=== PATIENT | female | born 1970 | race Caucasian/White ===

== ENCOUNTER 2019-07-13 22:51 | Emergency (ER) | payer MEDICAID ==
[~2019-07-13] VITALS: Ht 162.6 cm; Wt 58.1 kg
[2019-07-13 23:00] VITALS: BP 148/87
--- NOTE | 2019-07-13 23:09 | NUR ---
PT CAME FOR L EYE PAIN AND ITCHING. VSS. NO ACUTE DISTRESS NOTED. AWAITING FOR MD DENNIS
--- NOTE | 2019-07-13 23:15 | NUR ---
Patient discharged to home in stable condition. Written and verbal after care instructions given. Patient verbalizes understanding of instruction.
== END 2019-07-13 23:16 | disposition home or self-care (01) ==
LOC: ER 22:54
DX: H10.89 Other conjunctivitis (principal); Z98.890 Other specified postprocedural states

== ENCOUNTER 2021-02-26 21:03 | Emergency (ER) | payer OTHER ==
[~2021-02-26] VITALS: Ht 167.6 cm; Wt 68.0 kg
[2021-02-26] MEDS ORDERED: HYDROMORPHONE 1 MG/1 ML DISP.SYRIN ONE (21:04)
[2021-02-26] MEDS ORDERED: ONDANSETRON HCL/PF 4 MG/2 ML VIAL ONE (21:12)
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
[2021-02-26] MEDS ORDERED: ONDANSETRON HCL/PF 4 MG/2 ML VIAL IVP ONE (21:30)
[2021-02-26] MEDS ORDERED: HYDROMORPHONE INJ 2 MG/ML DISP.SYRIN IV ONE (21:30)
[2021-02-26] MEDS ORDERED: IV NS 0.9% 1,000 ML BAG IV ONE (21:30)
[2021-02-26] MEDS ORDERED: HYDR-3972 PO (21:39)
[2021-02-26 22:06] VITALS: BP 127/87
--- NOTE | 2021-02-26 22:06 | NUR ---
Patient discharged to home in stable condition. Written and verbal after care instructions given. Patient verbalizes understanding of instruction. IV removed. Catheter intact and site benign. Pressure and 4x4 applied to site. No bleeding noted.
== END 2021-02-26 22:07 | disposition home or self-care (01) ==
LOC: ER 21:03
DX: T24.202A Burn of second degree of unspecified site of left lower limb, except ankle and foot, initial encounter (principal); T23.112A Burn of first degree of left thumb (nail), initial encounter; Z98.890 Other specified postprocedural states; X12.XXXA Contact with other hot fluids, initial encounter; Y93.89 Activity, other specified; Y92.89 Other specified places as the place of occurrence of the external cause; Y99.8 Other external cause status
CPT/HCPCS: 16020; 96361; 96374; 96375; 99284; J1170; J2405; J7030 ×2